=== PATIENT | male | born 2000 ===

== ENCOUNTER → 2018-07-06 13:36 | Outpatient (REF) | payer OTHER, SELFPAY | LOC: LAB 13:36 | PROVIDERS: Visit Provider Otolaryngology Facial Plastic Surgery | DX: J34.2 Deviated nasal septum (principal); J34.89 Other specified disorders of nose and nasal sinuses; J34.3 Hypertrophy of nasal turbinates; J34.0 Abscess, furuncle and carbuncle of nose | CPT/HCPCS: 87070 ==